=== PATIENT | male | born 2000 ===

== ENCOUNTER 2024-08-23 19:04 | Emergency (ER) | payer SELFPAY ==
[2024-08-23 19:26] VITALS: BP 118/74; PULSE 60; RESP 18; O2SAT 100; BMI 23.5
== END 2024-08-24 00:48 | disposition left against medical advice (07) ==
PROVIDERS: Emergency Provider Emergency Medicine
DX: Z04.1 Encounter for examination and observation following transport accident (principal)
CPT/HCPCS: 99281